=== PATIENT | female | born 2005 | race Caucasian/White ===

== ENCOUNTER 2023-11-27 18:25 | Emergency (ER) | payer OTHER ==
[2023-11-27] MEDS: methylPREDNISolone Sodium Succinate 125 MG/2 ML SDV IV ONE (18:30)
[2023-11-27] MEDS: EPINEPHrine 1 MG/ML SDV IM ONE (18:30)
[2023-11-27] MEDS ORDERED: Sodium Chloride 0.9% 10 ML Syringe FLUSH PRN (18:30)
[2023-11-27] MEDS: diphenhydrAMINE 50 MG/ML SDV IVPUSH ONE (18:30)
== END 2023-11-27 21:54 | disposition home or self-care (01) ==
LOC: JP.ED 18:25
DX: T78.2XXA Anaphylactic shock, unspecified, initial encounter (principal); Z91.013 Allergy to seafood; Z91.018 Allergy to other foods
CPT/HCPCS: 96372; 96374; 96375; 99283; J0171; J1200; J2919